=== PATIENT | female | born 1950 | race Caucasian/White ===

== ENCOUNTER → 2020-10-02 12:16 | Outpatient (BNVA) | payer OTHER, SELFPAY | PROVIDERS: PCP Nurse Practitioner Family; Visit Provider Surgery | DX: Z01.812 Encounter for preprocedural laboratory examination (principal); Z20.822 Contact with and (suspected) exposure to COVID-19 | CPT/HCPCS: 87635 ==

== ENCOUNTER 2020-10-07 05:57 | Day surgery (SDC) | payer OTHER, SELFPAY ==
[2020-10-05 15:50] VITALS: BMI 34.3
--- NOTE | 2020-10-07 06:12 | W.PM.OPSFHP ---
Same Day Surgery H&P Indication for Procedure/HPI DATE OF PROCEDURE: October 07, 2020 CHIEF COMPLAINT/INDICATIONFOR SURGICAL PROCEDURE: Screening colonoscopy PREOP DIAGNOSIS: Screening colonoscopy PLANNED PROCEDRUE: Operation Date: 10/07/20 07:00 Proposed Procedures p Colonoscopy 49335 Z12.11(Not Applicable) - Arturo Luna MD This is a pleasant 70 referred to my practice for screening colonoscopy, patient reports that she had a previous colonoscopy about 15 years ago in [facility] and that was reported as normal. She denies any bleeding per rectum or history of colon cancer. ROS All systems have been all systems have been reviewed negative except as per the above or per problem list Medications/Allergies* Home Medications Medication Instructions Recorded Confirmed Type cholecalciferol (vitamin D3) 125 125 mcg PO DAILY 09/03/20 10/05/20 History mcg (5,000 unit) capsule insulin glargine 100 unit/mL (3 55 unit SUBCUT QAM ml 09/03/20 10/05/20 History mL) subcutaneous pen levothyroxine 88 mcg capsule 88 mcg PO DAILY 09/03/20 10/05/20 History losartan 25 mg tablet 25 mg PO DAILY 09/03/20 10/05/20 History metformin 1,000 mg tablet 1,000 mg PO BID 09/03/20 10/05/20 History simvastatin 40 mg tablet 40 mg PO DAILY 09/03/20 10/05/20 History Allergies/Adverse Reactions Allergy/AdvReac Type Severity Reaction Status Date / Time No Known Allergies Allergy Verified 10/07/20 06:17 Pertinent Exam Findings alert, oriented x 3, clear to auscultation bilaterally, regular rate & rhythm and procedure specific exam findings (Abdomen nontender nondistended soft, obese) Recommendations Surgery/Procedure today (Colonoscopy with possible biopsy possible polypectomy) Other Plans: Plan of care; After thorough history and physical examination and reviewing the chart, plan to perform screening colonoscopy. I discussed with the patient in details the risks,benefits,alternatives and indications.The risk of aspiration, bleeding, soft tissue injury, perforation of the colon and other potential concomitant complications were explained to the patient in details,also the potential need for Laproscoy/Laparotomy to repair any related complications including but not limited to colectomy and or Closotomy.The patient understood this well and did agree to proceed. Rationale was carefully and clearly discussed with the patient.Appropriate informed consent have been reviewed and signed All questions have been answered and all concerns have been addressed to patient's satisfaction. Verbal and written Instructions were given to the patient for colonoscopy prep Coding Level of Care Code Acute Adjustment Examiner for Eduarda Edward
[2020-10-07 06:16] VITALS: BP 148/96; PULSE 77; RESP 18; TEMP 36.3; O2SAT 98
[2020-10-07] MEDS: sodium chloride 0.9% 1,000 ML 30 ML IV (06:25)
[2020-10-07 06:32] LABS: Glucose Point of Care 149 mg/dL (70-110)
--- NOTE | 2020-10-07 06:44 | ANES.PREANE2 ---
Pre-Anesthetic Assessment Pre-Anesthetic Assessment: Height/Weight: Height 1.63 m Weight 90.718 kg Temp Pulse Resp BP Pulse Ox 97.4 F L 77 18 148/96 98 10/07/20 06:16 10/07/20 06:16 10/07/20 06:16 10/07/20 06:16 10/07/20 06:16 Preop Diagnosis: Screening colonoscopy Proposed Procedure: Operation Date: 10/07/20 07:00 Proposed Procedures p Colonoscopy 80182 Z12.11(Not Applicable) - Arturo Luna MD Familial anesthetic complications: none Was Beta Dianna taken within 24 hours: N/A Was Clonidine taken within 24 hours: N/A Last intake: Intake Last Liquid Date 10/06/20 Last Liquid Time 05:00 Last Solid Date 10/05/20 Last Solid Time 00:00 Social: Social History: Tobacco ( quit smoking but smokes on occasion ) and No alcohol Exam: Pre-Anes Outpt Exam: alert, oriented x 3, clear to auscultation bilaterally and regular rate & rhythm Airway: Submandibular: WNL Cervical ROM: WNL MP: 1 Dentition: Partials Pulmonary: Pulmonary: None reported CV/HEM: CV/HEM: HTN : : None reported Hepatic: Hepatic: None reported GI: GI: GERD (OTC controls ) Metabolic: Metabolic: DM, Hyperlipidemia and Thyroid Musc/skel: Musc/skel: OA/DJD Neuropsych: Neuropsych: None reported Anesthetic Plan: ASA status: 2 Anesthesia: MAC Risk of > 500 ml blood loss (7ml/kg in children): No Data Anesthesia Other Labs: Laboratory Results - last 48 hr 10/07/20 06:28 POC Glucose 149 H Cardiac Studies: No Data to Display
[2020-10-07 07:25] VITALS: BP 103/66; PULSE 76; RESP 12; TEMP 36.2; O2SAT 94
--- NOTE | 2020-10-07 07:29 | P.PCN_ITS ---
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
--- NOTE | 2020-10-07 07:29 | PM.PACU ---
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
[2020-10-07 07:40] VITALS: BP 111/67; PULSE 66; RESP 16; TEMP 36.4; O2SAT 96
== END 2020-10-07 08:10 | disposition home or self-care (01) ==
PROVIDERS: PCP Nurse Practitioner Family; Visit Provider Surgery
PROC: 0DJD8ZZ Inspection of Lower Intestinal Tract, Via Natural or Artificial Opening Endoscopic (ICD-10-PCS; CPT 45378; principal; 2020-10-07 07:00)
DX: Z12.11 Encounter for screening for malignant neoplasm of colon (principal); D12.5 Benign neoplasm of sigmoid colon; K57.30 Diverticulosis of large intestine without perforation or abscess without bleeding; I10 Essential (primary) hypertension; K21.9 Gastro-esophageal reflux disease without esophagitis; E11.9 Type 2 diabetes mellitus without complications; E78.5 Hyperlipidemia, unspecified; M19.90 Unspecified osteoarthritis, unspecified site
CPT/HCPCS: 36416; 45380; 82962; 88305; 96360; J2704; J7030

== ENCOUNTER 2023-07-26 12:43 | Outpatient (CLI) | payer MEDICARE, MEDICAID, SELFPAY ==
--- NOTE | 2023-07-26 13:14 | MM_ITS ---
WS: [id number] BILATERAL 3D TOMOSYNTHESIS DIGITAL SCREENING MAMMOGRAPHY WITH CAD CLINICAL INFORMATION: SCREEN HISTORY: Screening mammogram. No current complaints. COMPARISON: 2021 TECHNIQUE: Bilateral CC and MLO views. FINDINGS: Scattered fibroglandular densities bilaterally. No suspicious focal mass, asymmetry, calcifications, or architectural distortion. No evidence of malignancy. Incidental punctate and lucent centered calci fications. Stable nodularity LEFT greater than RIGHT breast anteriorly. Vascular calcifications. Inci dental oil cysts LEFT breast. IMPRESSION: MM/[place] [id number] BI-RADS: 2-Benign FOLLOW UP: 1 Year Follow-up Recommend return to annual screening mammography.
== END 2023-07-26 12:44 | disposition home or self-care (01) ==
PROVIDERS: PCP Nurse Practitioner Family; Visit Provider Nurse Practitioner
DX: Z12.31 Encounter for screening mammogram for malignant neoplasm of breast (principal)
CPT/HCPCS: 77063; 77067

== ENCOUNTER 2024-07-29 14:45 | Outpatient (CLI) | payer MEDICARE, MEDICAID, SELFPAY ==
--- NOTE | 2024-07-29 14:53 | MM_ITS ---
WS: [id number] BILATERAL 3D TOMOSYNTHESIS DIGITAL SCREENING MAMMOGRAPHY WITH CAD CLINICAL INFORMATION: SCREENING HISTORY: Screening mammogram. No current complaints. COMPARISON: 2023 TECHNIQUE: Bilateral CC and MLO views. FINDINGS: Scattered fibroglandular densities bilaterally. No suspicious focal mass, asymmetry, calcifications, or architectural distortion. No evidence of malignancy. Punctate and lucent centered calcifications. Vascular calcification. MM/MM scr tomosynthesis [id number] IMPRESSION: DENSITY: There are scattered areas of fibroglandular density. BI-RADS: 2 - Benign. FOLLOW UP: 1 Year Follow-up Recommend return to annual screening mammography.
== END 2024-07-29 14:46 | disposition home or self-care (01) ==
PROVIDERS: PCP Nurse Practitioner Family; Visit Provider Nurse Practitioner
DX: Z12.31 Encounter for screening mammogram for malignant neoplasm of breast (principal); R92.323 Mammographic fibroglandular density, bilateral breasts; R92.1 Mammographic calcification found on diagnostic imaging of breast
CPT/HCPCS: 77063; 77067